=== PATIENT | male | born 1950 | race African-American/Black ===

== ENCOUNTER 2019-03-24 08:07 | Inpatient (IN) ==
--- NOTE | 2019-03-17 14:18 | Anesthesiology Consultation ---
Date of Service March 17, 2019 Assessment & Plan (1) Encounter for pre-operative examination: Chart Review Chart Review: Acceptable Risk for Surgery and Patient NOT seen in Pre Admission Testing given the chronic anemia with Hb <10, will order a T&S for morning of surgery. Consults Requested none History Surgery Operation Date: 03/24/19 08:20 Proposed Procedures p Laparoscopic Assisted Colon Resection - Darion Valdez MD Height/Weight Height: 5 ft 7 in Weight: 80.45 kg Allergies Allergy/AdvReac Type Severity Reaction Status Date / Time No Known Allergies Allergy Verified 03/17/19 10:42 Medications Home Medications Medication Instructions Recorded Confirmed Last Taken aspirin 81 mg tablet,delayed 81 mg PO DAILY 02/21/19 03/17/19 Unknown release atenolol 50 mg tablet 50 mg PO DAILY 02/21/19 03/17/19 Unknown atorvastatin 10 mg tablet 10 mg PO DAILY 02/21/19 03/17/19 Unknown enalapril 10 1 tab PO DAILY 02/21/19 03/17/19 Unknown mg-hydrochlorothiazide 25 mg tablet ferrous gluconate 324 mg (37.5 mg 324 mg PO DAILY tab 02/21/19 03/17/19 Unknown iron) tablet metformin 1,000 mg tablet 1,000 mg PO BID 02/21/19 03/17/19 Unknown ranitidine 150 mg capsule 150 mg PO BID 02/21/19 03/17/19 Unknown bisacodyl 10 mg PO DAILY 03/17/19 03/17/19 Unknown magnesium citrate 1 ml PO UD 03/17/19 03/17/19 Unknown metronidazole 500 mg PO TID 03/17/19 03/17/19 Unknown neomycin 500 mg PO Q8H 03/17/19 03/17/19 Unknown sodium phosphates [Fleet Enema] 197 ml NM DAILY 03/17/19 03/17/19 Unknown Past Medical History Medical History Anemia Cholelithiasis Cirrhosis Diabetes mellitus, type II GERD without esophagitis Glaucoma HCV (hepatitis C virus) Hypertension Malignant neoplasm of sigmoid colon Neck problem 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
[~2019-03-24 08:07] MED LIST: LR 15ML/HR IV SCH
[2019-03-24] MEDS ORDERED: NEOSTIGMINE METHYLSULFATE 5 MG/5 ML SYR ONE (08:55)
[2019-03-24] MEDS ORDERED: ONDANSETRON INJ 2 MG/ML 2 ML VIAL ONE (08:55)
[2019-03-24] MEDS ORDERED: ROCURONIUM BROMIDE 10 MG/ML 5 ML VIAL ONE ×2 (08:55→10:52)
[2019-03-24] MEDS ORDERED: PROPOFOL IV EMULSION 10 MG/ML 20 ML VIAL IV ONE (08:55)
[2019-03-24] MEDS ORDERED: MIDAZOLAM HCL 1 MG/ML 2ML VIAL ONE (08:55)
[2019-03-24] MEDS ORDERED: GLYCOPYRROLATE 0.2 MG/ML VIAL ONE (08:55)
[2019-03-24] MEDS ORDERED: DEXAMETHASONE SOD INJ 4 MG/ML VIAL ONE (08:55)
[2019-03-24] MEDS ORDERED: LIDOCAINE HCL 2% 2 ML VIAL/AMP(20MG/ML) INFIL ONE (08:55)
[2019-03-24] MEDS ORDERED: fentaNYL citrate 100 MCG/2 ML VIAL ONE ×2 (08:55→12:02)
[2019-03-24] MEDS ORDERED: HYDROmorphone INJ 1 MG/ML SYRINGE IV PRN (09:16)
[2019-03-24] MEDS ORDERED: ONDANSETRON INJ 2 MG/ML 2 ML VIAL IV PRN ×2 (09:16→13:54)
[2019-03-24] MEDS ORDERED: ATROPINE SULFATE 0.1 MG/ML 10ML SYR IV PRN (09:16)
[2019-03-24] MEDS ORDERED: ePHEDrine sulfate 50 MG/ML AMP IV PRN (09:16)
[2019-03-24] MEDS ORDERED: fentaNYL citrate 100 MCG/2 ML VIAL IV PRN (09:16)
--- NOTE | 2019-03-24 09:42 | History & Physical Report ---
Date of Service March 24, 2019 Assessment & Plan (1) Encounter for pre-operative examination: Plan is to proceed with laparoscopic assisted colon resection risk and complication of been explained to the patient lightheaded time and will proceed accordingly there is been no change whatsoever in his history or physical excepted bowel prep that he was placed on 2 prep for this procedure Present on Admission?: Yes History of Present Illness Chief Complaint: This 68-year-old prisoner saw month ago 30 days to be exact with a biopsy-proven sigmoid cancer stage by CT scan was placed on bowel prep and is came in today to have a laparoscopic assisted sigmoid colon resection since I saw month ago there is been no changes in overall health except that he had bowel prep last few days to prep for this procedure Primary Care Provider: GURDEEP Carter Allergies Allergy/AdvReac Type Severity Reaction Status Date / Time No Known Allergies Allergy Verified 03/24/19 08:26 Home Medications Home Medications Medication Instructions Recorded Confirmed Type aspirin 81 mg tablet,delayed 81 mg PO DAILY 02/21/19 03/17/19 History release atenolol 50 mg tablet 50 mg PO DAILY 02/21/19 03/17/19 History atorvastatin 10 mg tablet 10 mg PO DAILY 02/21/19 03/17/19 History enalapril 10 1 tab PO DAILY 02/21/19 03/17/19 History mg-hydrochlorothiazide 25 mg tablet ferrous gluconate 324 mg (37.5 mg 324 mg PO DAILY tab 02/21/19 03/17/19 History iron) tablet metformin 1,000 mg tablet 1,000 mg PO BID 02/21/19 03/17/19 History ranitidine 150 mg capsule 150 mg PO BID 02/21/19 03/17/19 History bisacodyl 10 mg PO DAILY 03/17/19 03/17/19 History magnesium citrate 1 ml PO UD 03/17/19 03/17/19 History metronidazole 500 mg PO TID 03/17/19 03/17/19 History neomycin 500 mg PO Q8H 03/17/19 03/17/19 History sodium phosphates [Fleet Enema] 197 ml MO DAILY 03/17/19 03/17/19 History Past Med/Surg History Medical History Anemia Cholelithiasis Cirrhosis Diabetes mellitus, type II GERD without esophagitis Glaucoma HCV (hepatitis C virus) Hypertension Malignant neoplasm of sigmoid colon Neck problem 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 Surgical History Surgical history unknown Family History Other Family history unknown Social History Current Living Situation Comment: [facility] Smoking Status: Unknown if ever smoked Review of Systems Review of Systems: All systems reviewed & are unremarkable except as noted in HPI & below Physical Exam Constitutional: WD/WN, vitals as above well developed and well nourished Eyes: PERRL, conjunctivae normal, anicteric sclerae ENMT: external ear and nose normal, oropharynx normal Neck: trachea midline, no thyromegaly Respiratory: normal respiratory effort, lungs clear to auscultation Cardiovascular: RRR, no murmur, no edema Gastrointestinal (Abdomen): normal bowel sounds, soft, nontender, no hepatosplenomegaly Musculoskeletal: no cyanosis or clubbing, extremities motor strength 5/5 Patient has a difficult time bending forward in fact he walks around and maneuvers himself as he is having abdominal and back brace which he does not and long-standing problem with back injuries Skin: no rashes, warm and dry Results & Data Vital Signs (Past 12 Hours) Vital Signs Temp Pulse Resp BP Pulse Ox 03/24/19 08:34 37.3 C 100 H 18 147/88 H 98 PG Care Time/CCT Total # of Minutes Spent Total Time Spent with Patient: Total time spent is greater than 50% in coordination of care (as documented) at patient's floor/unit and/or counseling patient:
[2019-03-24] MEDS ORDERED: BUPIVACAINE 0.5 % 5 MG/1 ML MPF 30ML VIAL ONE (09:54)
[2019-03-24] MEDS ORDERED: SUCCINYLCHOLINE CHLORIDE 20 MG/ML 10 ML VIAL ONE (10:12)
[2019-03-24] MEDS ORDERED: ESMOLOL HCL INJ 10 MG/ML 10ML VIAL IV ONE (10:40)
[2019-03-24] MEDS ORDERED: cefOXitin 2,000 MG in DEXTROSE 5% 50 ML IV STA ×2 (10:48→10:58)
[2019-03-24] MEDS ORDERED: SODIUM CHLORIDE 0.9% INJ 10 ML VIAL ONE (10:50)
[2019-03-24] MEDS ORDERED: HYDROmorphone INJ 2 MG/ML SYR/VIAL ONE (10:50)
[2019-03-24] MEDS ORDERED: SUGAMMADEX SODIUM 200 MG/2 ML VIAL IV ONE (12:08)
--- NOTE | 2019-03-24 12:20 | Post Operative Brief Note ---
PG Immediate Post Op with CF Date of Surgery March 24, 2019 Pre & Post Diagnosis Operation Date: 03/24/19 09:50 Pre-Op Diagnosis: Colon Cancer Post-Op Diagnosis: Colon Cancer, Incarcerated umbilical hernia I identified the patient and participated in the time-out.: Yes Procedure Operation Date: 03/24/19 09:50 Actual Procedures p Laparoscopic-Assisted SigmoidColon Resection, Left incarcerated umbilical hernia repair(Not Applicable) - Darion Valdez MD Surgeon Darion Valdez MD Sterile Preparation Technician b nikkie mac Estimated Blood Loss 100 Findings Consistent with Post-Op Diagnosis Specimens Specimen Description: Culture#1 cathed urine A. Sigmoid colon B. left incargerated umbilical hernia contents Drains Yair Drain (19Fr), Rae Catheter and Belinda Drain (1/")
--- NOTE | 2019-03-24 12:43 | Operative Report ---
PG Post Operative Report Pre & Post Diagnosis Operation Date: 03/24/19 09:50 Pre-Op Diagnosis: Colon Cancer Post-Op Diagnosis: Colon Cancer, Incarcerated umbilical hernia I identified the patient and participated in the time-out.: Yes Procedure Operation Date: 03/24/19 09:50 Actual Procedures p Laparoscopic-Assisted SigmoidColon Resection, Left incarcerated umbilical hernia repair(Not Applicable) - Darion Valdez MD The patient was brought to operating room theater general endotracheal anesthesia Rae catheter inserted the abdomen was shaved and prepped Betadine scrub solution properly draped systemic antibiotics given a timeout was had patient was identified this point we made a small incision supraumbilically sufficient enough for a Veress needle followed by CO2 followed by 5 mm trocar point of entry inspected no injury identified we looked at the liver which was grossly cirrhotic there was no obvious the implants there was no implants that was appreciated on the omentum patient did have a significant dilated sigmoid colon and descending colon possibly from bowel prep since he had no real obstructive symptoms for the lesion in the sigmoid area this point we used 5 mm trocar right lower quadrant and one on the left upper quadrant we divided and freed up the lateral attachments of the sigmoid colon usp up to the hepatic flexure splenic flexure. At this point after feeling that we we had enough mobilization we then converted to an open procedure by making a slower midline incision to the subcutaneous tissue dividing between the rectus intra-abdominal he once we entered the dilated colon actually came out of the incision we placed the Bookwalter retraction and then we were able to see since we had enough mobi lity we divided the descending colon just proximal to the peritoneal but proximal to the pelvic inlet using a RALPH 60 we divided then took the mesentery down to the inferior mesenteric artery almost at the takeoff. We divided that area ligated with 2-0 silk then we took the mesentery down which the tumor itself was easily palpated and it was almost almost mid sigmoid we were well below into the distal sigmoid area probably about 6 cm or more beyond the lesion we put a right ankle intestinal clamp in the area and then divided it and we try to remove the specimen the area was then checked hemostasis appear satisfactory we were able to palpate the lesion we took it out the way well beyond it we could see the attached to the area. The staple line proximally in the sigmoid colon was oversewn with an side and anastomoses layer 3-0 chromic in the sigmoid area approximately 4 5 cm proximal to the rectum. Once is been completed we then sure checked for hemostasis at the anastomosis was patent we then was saw that the umbilical opening having some incarcerated omentum in the proximal aspect therefore we enlarged the incision sufficient enough to reduce the incarcerated omentum into the umbilical area we resected ligated with 2-0 silk suture we then closed the abdominal incision by first checking the small bowel which we did actually down to into the right lower quadrant in the pelvic area there is seem to be an adhesive band even though it was well away the appendix which pretty much obliterated we freed this up it was small mesenteric dehiscence that we closed with interrupted 3-0 silk suture probably some serosal separation also the terminal ileum but no enteric contents were no evidence of any wall. #1 PDS interrupted sutures were used to close the abdominal incision after using 3-0 chromic for #1 chromic to close the peritoneum in a continuous fashion placed 1/4 inch [place] in the subcu suturing approximately distally and with 3-0 silk suture we also placed a 19 Yair drain through stab wound in the left upper quadrant done in the pelvic area attention to skin edge with 2-0 silk suture. Dressing was applied. Procedure was tolerated well by the patient estimated blood loss 100 cc padmaendKosta mac was present throughout the procedure helped with wound closure exposure and camera work Surgeon Darion Valdez MD Data Operations Leader roni mac Estimated Blood Loss 100 Findings Consistent with Post-Op Diagnosis Specimens sigmoid colon inc umbilical hernia contents Description of Procedure merda I attest to the content of the Intraoperative Record and any orders documented therein. Any exceptions are noted below.
[2019-03-24] MEDS ORDERED: GLUCOSE 40% GEL 15 GM TUBE PO PRN (13:54)
[2019-03-24] MEDS ORDERED: DEXTROSE 50% 50 ML SYRINGE IV PRN (13:54)
[2019-03-24] MEDS ORDERED: GLUCAGON FOR INJ 1 MG VIAL SQ PRN (13:54)
[2019-03-24] MEDS ORDERED: GLUCOSE 10 TABS/TUBE PO PRN (13:54)
[2019-03-24] MEDS ORDERED: CARBOHYDRATES FOR HYPOGLYCEMIA PO PRN (13:54)
[2019-03-24] MEDS ORDERED: NALOXONE HCL 0.4 MG/1 ML VIAL/CARP IV PRN (14:01)
[2019-03-24] MEDS: SODIUM CHLORIDE 0.9% 1000ML 1,000 ML IV SCH (14:10)
[2019-03-24] MEDS ORDERED: INFLUENZA VACCINE HIGH DOSE 65+ 0.5 ML SYR IM ONE (15:45)
[2019-03-24] MEDS ORDERED: INFLUENZA ADMINISTRATION CHARGE ONE (15:45)
[2019-03-24] MEDS: cefOXitin 2,000 MG in DEXTROSE 5% 50 ML IV SCH ×2 (15:56→21:48)
[2019-03-24] MEDS ORDERED: INSULIN ASPART 100 UNITS/ML 3 ML PEN SC SCH (16:30)
[2019-03-24] MEDS: MORPHINE SULFATE PCA 30 MG/30 ML IV PRN (17:55)
[2019-03-24] MEDS: LACTATED RINGER'S 1,000 ML IV SCH (18:16)
[2019-03-24] MEDS ORDERED: Nursing to Pharmacy Communication ONE (18:23)
--- NOTE | 2019-03-24 20:15 | Anesthesiology Progress Note ---
Date of Service March 24, 2019 Anesthesia Post Procedure Vital Signs Vital Signs: Temp Pulse Pulse Resp BP Pulse Ox 03/24/19 19:00 37 C 89 16 130/78 99 03/24/19 16:48 36.7 C 88 17 129/77 98 03/24/19 15:46 36.7 C 87 17 124/76 98 03/24/19 13:30 74 17 146/77 H 98 03/24/19 13:20 36.3 C L 77 12 136/75 99 03/24/19 13:10 77 13 133/72 99 03/24/19 13:00 36.8 C 76 75 16 133/76 2 L 03/24/19 12:50 77 18 147/80 H 98 03/24/19 12:40 86 18 148/82 H 93 03/24/19 12:34 36.4 C L 75 18 163/81 H 97 03/24/19 08:34 37.3 C 100 H 18 147/88 H 98 Pain Intensity Bilateral Knee: Pain Intensity: 0 Bilateral Abdomen: Pain Intensity: 4 Transfer of Care Handoff Completed per policy Notes Mental Status: alert / awake / arousable and participated in evaluation Patient Amnestic to Procedure: Yes Nausea / Vomiting: adequately controlled Pain: adequately controlled Airway Patency, RR, SpO2: stable & adequate BP & HR: stable & adequate Hydration State: stable & adequate Anesthetic Complications: no major complications apparent and Pt Satisfied with anesthetic care
[2019-03-24] MEDS: HEPARIN SOD 5,000 UNIT/0.5 ML VIAL SQ SCH (21:13)
[2019-03-24] MEDS: INSULIN ASPART 100 UNITS/ML 3 ML PEN SC SCH (23:43)
[2019-03-25] MEDS ORDERED: INSULIN ASPART 100 UNITS/ML 3 ML PEN SC SCH
[2019-03-25] MEDS: LACTATED RINGER'S 1,000 ML IV SCH ×5 (02:11→23:56)
[2019-03-25] MEDS: cefOXitin 2,000 MG in DEXTROSE 5% 50 ML IV SCH ×2 (04:50→09:34)
[2019-03-25 05:48] LABS: Hematocrit (blood only) 30.7 % (42-52); Hemoglobin 8.8 g/dL (14.0-18.0); Mean Corpuscular Hemoglobin 19.2 pg (25-34); Mean Corpuscular Hgb Conc 28.7 g/dL (32-36); Mean Corpuscular Volume 66.9 fL (80-100); Mean Platelet Volume 9.8 fL (7.4-10.4); Platelet Count 255 K/uL (130-400); RDW Coefficient of Variation 17.3 % (11.5-14.5); RDW Standard Deviation 42.3 fL (36.4-46.3); Red Blood Count 4.59 M/uL (4.7-6.1); White Blood Count 9.28 K/uL (4.8-10.8)
[2019-03-25 06:05] LABS: BUN Creatinine Ratio 16.7 (10-20); Calcium 8.2 mg/dl (8.5-10.1); Creatinine Clr Calc Pharmacy 104.3 ml/min; Est GFR (African American) 111.1; Est GFR (Non-African American) 95.9; Potassium 4.2 mmol/L (3.5-5.1)
--- NOTE | 2019-03-25 08:05 | Anesthesiology Progress Note ---
Date of Service March 25, 2019 Anesthesia Post Procedure Vital Signs Vital Signs: Temp Pulse Pulse Resp BP Pulse Ox 03/25/19 07:49 36.8 C 90 16 158/84 H 99 03/25/19 04:05 36.8 C 81 16 159/83 H 100 03/24/19 23:09 37.0 C 101 H 16 150/77 H 99 03/24/19 21:53 37 C 97 H 14 138/81 99 03/24/19 21:06 37.5 C 90 18 129/82 99 03/24/19 20:16 36.5 C 95 H 18 139/83 99 03/24/19 19:00 37 C 89 16 130/78 99 03/24/19 16:48 36.7 C 88 17 129/77 98 03/24/19 15:46 36.7 C 87 17 124/76 98 03/24/19 13:30 74 17 146/77 H 98 03/24/19 13:20 36.3 C L 77 12 136/75 99 03/24/19 13:10 77 13 133/72 99 03/24/19 13:00 36.8 C 76 75 16 133/76 2 L 03/24/19 12:50 77 18 147/80 H 98 03/24/19 12:40 86 18 148/82 H 93 03/24/19 12:34 36.4 C L 75 18 163/81 H 97 03/24/19 08:34 37.3 C 100 H 18 147/88 H 98 Pain Intensity Bilateral Knee: Pain Intensity: 0 Bilateral Abdomen: Pain Intensity: 4 Notes Mental Status: alert / awake / arousable and participated in evaluation Patient Amnestic to Procedure: Yes Nausea / Vomiting: adequately controlled Pain: adequately controlled Airway Patency, RR, SpO2: stable & adequate BP & HR: stable & adequate Hydration State: stable & adequate Anesthetic Complications: no major complications apparent and Pt Satisfied with anesthetic care
[2019-03-25] MEDS: ATORVASTATIN 10 MG TAB PO SCH (08:10)
[2019-03-25] MEDS: ASPIRIN 81 MG ECTAB PO SCH (08:10)
[2019-03-25] MEDS: ATENOLOL 50 MG TABLET PO SCH (08:10)
[2019-03-25] MEDS: HEPARIN SOD 5,000 UNIT/0.5 ML VIAL SQ SCH ×3 (08:16→21:34)
[2019-03-25] MEDS: INSULIN ASPART 100 UNITS/ML 3 ML PEN SC SCH ×3 (08:16→18:05)
--- NOTE | 2019-03-25 09:06 | Surgery Progress Note ---
Date of Service March 25, 2019 Assessment & Plan (1) Encounter for pre-operative examination: POD 1 lap assisted sigmoid resection for CA start clears subQ heparin monitor H&H, minimal intraop loss and delaney drainage decrease IVF Subjective some pain, no nausea Physical Exam Gastrointestinal (Abdomen): Inspection/Auscultation: + abdominal surgical incision (minimal elizabeth drainage) and + abdominal surgical drain present (10 cc overnight); abdomen not distended Percussion/Palpation: abdomen soft Results & Data Vital Signs (Past 12 Hours) Vital Signs Temp Pulse Resp BP Pulse Ox 03/25/19 07:49 36.8 C 90 16 158/84 H 99 03/25/19 04:05 36.8 C 81 16 159/83 H 100 03/24/19 23:09 37.0 C 101 H 16 150/77 H 99 03/24/19 21:53 37 C 97 H 14 138/81 99 PG Care Time/CCT Total # of Minutes Spent Total Time Spent with Patient: Total time spent is greater than 50% in coordination of care (as documented) at patient's floor/unit and/or counseling patient:
[2019-03-25] MEDS: SODIUM CHLORIDE 0.9% 1000ML 1,000 ML IV SCH (13:06)
[2019-03-26] MEDS: INSULIN ASPART 100 UNITS/ML 3 ML PEN SC SCH ×5 (00:05→23:54)
[2019-03-26] MEDS: HEPARIN SOD 5,000 UNIT/0.5 ML VIAL SQ SCH ×3 (05:12→21:11)
[2019-03-26] MEDS: MORPHINE SULFATE PCA 30 MG/30 ML IV PRN (05:52)
[2019-03-26 06:03] LABS: BUN Creatinine Ratio 13.8 (10-20); Calcium 8.2 mg/dl (8.5-10.1); Creatinine Clr Calc Pharmacy 110.5 ml/min; Est GFR (African American) 113.7; Est GFR (Non-African American) 98.1; Potassium 4.7 mmol/L (3.5-5.1)
[2019-03-26 06:24] LABS: Basophils # (auto) 0.03 K/uL (0-0.2); Basophils % (auto) 0.5 %; Eosinophils # (auto) 0.15 K/uL (0-0.5); Eosinophils % (auto) 2.4 %; Hematocrit (blood only) 30.6 % (42-52); Hemoglobin 8.5 g/dL (14.0-18.0); Hypochromasia Present; Immature Granulocytes # (auto) 0.01 K/uL (0.00-0.02); Immature Granulocytes % (auto) 0.2 %; Lymphocytes # (auto) 1.42 K/uL (1.2-3.4); Lymphocytes % (auto) 22.3 %; Mean Corpuscular Hemoglobin 19.2 pg (25-34); Mean Corpuscular Hgb Conc 27.8 g/dL (32-36); Mean Corpuscular Volume 69.2 fL (80-100); Mean Platelet Volume 10.5 fL (7.4-10.4); Microcytosis Present; Monocytes # (auto) 0.67 K/uL (0.11-0.59); Monocytes % (auto) 10.5 %; Neutrophils # (auto) 4.08 K/uL (1.4-6.5); Neutrophils % (auto) 64.1 %; Platelet Count 218 K/uL (130-400); RDW Coefficient of Variation 17.4 % (11.5-14.5); RDW Standard Deviation 44.4 fL (36.4-46.3); Red Blood Count 4.42 M/uL (4.7-6.1); White Blood Count 6.36 K/uL (4.8-10.8)
[2019-03-26] MEDS: LACTATED RINGER'S 1,000 ML IV SCH ×3 (07:40→23:45)
[2019-03-26] MEDS: ATENOLOL 50 MG TABLET PO SCH (08:11)
[2019-03-26] MEDS: ASPIRIN 81 MG ECTAB PO SCH (08:11)
[2019-03-26] MEDS: ATORVASTATIN 10 MG TAB PO SCH (08:11)
--- NOTE | 2019-03-26 10:02 | Surgery Progress Note ---
Date of Service March 26, 2019 Assessment & Plan (1) Encounter for pre-operative examination: Postoperative day #2 status post laparoscopic assisted sigmoid colon resection Peristalsis has not yet returned Would continue n.p.o. Does not need an NG tube at this time H&H is stable Encouraged out of bed Subjective Postoperative day #1, status post laparoscopic-assisted sigmoid colon resection Distention unchanged Has not passed gas or had a bowel movement Denies nausea No vomiting Mello-Rubio drain with 120 cc out yesterday and 80 cc out last shift, serosanguineous Physical Exam Gastrointestinal (Abdomen): Inspection/Auscultation: + abdomen distended and + abdominal surgical incision (Clean, dry and intact) Percussion/Palpation: + abdomen tender (Incisional) and abdomen soft Few bowel sounds Results & Data Vital Signs (Past 12 Hours) Vital Signs Temp Pulse Resp BP Pulse Ox 03/26/19 07:09 36.9 C 85 18 127/84 86 L 03/26/19 03:50 36.9 C 64 16 135/72 99 03/25/19 22:58 37.0 C 80 16 106/66 97 Laboratory Results 03/26/19 03/26/19 03/26/19 Range/Units 06:00 05:02 05:02 WBC 6.36 (4.8-10.8) K/uL RBC 4.42 L (4.7-6.1) M/uL Hgb 8.5 L (14.0-18.0) g/dL Hct 30.6 L (42-52) % MCV 69.2 L (80-100) fL MCH 19.2 L (25-34) pg MCHC 27.8 L (32-36) g/dL RDW Std Deviation 44.4 (36.4-46.3) fL RDW Coeff of Kvng 17.4 H (11.5-14.5) % Plt Count 218 (130-400) K/uL MPV 10.5 H (7.4-10.4) fL Immature Gran % (Auto) 0.2 % Neut % (Auto) 64.1 % Lymph % (Auto) 22.3 % Ponce % (Auto) 10.5 % Eos % (Auto) 2.4 % Baso % (Auto) 0.5 % Immature Gran # (Auto) 0.01 (0.00-0.02) K/uL Neut # (Auto) 4.08 (1.4-6.5) K/uL Lymph # (Auto) 1.42 (1.2-3.4) K/uL Ponce # (Auto) 0.67 H (0.11-0.59) K/uL Eos # (Auto) 0.15 (0-0.5) K/uL Baso # (Auto) 0.03 (0-0.2) K/uL Hypochromasia Present Microcytosis Present Sodium 138 (136-145) mmol/L Potassium 4.7 (3.5-5.1) mmol/L Chloride 104 (98-107) mmol/L Carbon Dioxide 30 (21-32) mmol/L Anion Gap 4.0 (3-11) BUN 9 (7-18) mg/dl Creatinine 0.68 (0.6-1.4) mg/dl Est Cr Clr Drug Dosing 110.5 ml/min Est GFR ( Amer) 113.7 Est GFR (Non-Af Amer) 98.1 BUN/Creatinine Ratio 13.8 (10-20) Glucose 94 (70-99) mg/dl POC Glucose 89 (70-99) Calcium 8.2 L (8.5-10.1) mg/dl 03/25/19 03/25/19 03/25/19 Range/Units 23:55 18:03 12:07 WBC (4.8-10.8) K/uL RBC (4.7-6.1) M/uL Hgb (14.0-18.0) g/dL Hct (42-52) % MCV (80-100) fL MCH (25-34) pg MCHC (32-36) g/dL RDW Std Deviation (36.4-46.3) fL RDW Coeff of Kvng (11.5-14.5) % Plt Count (130-400) K/uL MPV (7.4-10.4) fL Immature Gran % (Auto) % Neut % (Auto) % Lymph % (Auto) % Ponce % (Auto) % Eos % (Auto) % Baso % (Auto) % Immature Gran # (Auto) (0.00-0.02) K/uL Neut # (Auto) (1.4-6.5) K/uL Lymph # (Auto) (1.2-3.4) K/uL Ponce # (Auto) (0.11-0.59) K/uL Eos # (Auto) (0-0.5) K/uL Baso # (Auto) (0-0.2) K/uL Hypochromasia Microcytosis Sodium (136-145) mmol/L Potassium (3.5-5.1) mmol/L Chloride (98-107) mmol/L Carbon Dioxide (21-32) mmol/L Anion Gap (3-11) BUN (7-18) mg/dl Creatinine (0.6-1.4) mg/dl Est Cr Clr Drug Dosing ml/min Est GFR ( Amer) Est GFR (Non-Af Amer) BUN/Creatinine Ratio (10-20) Glucose (70-99) mg/dl POC Glucose 109 H 132 H 129 H (70-99) Calcium (8.5-10.1) mg/dl
[2019-03-26] MEDS: SODIUM CHLORIDE 0.9% 1000ML 1,000 ML IV SCH (13:23)
[2019-03-27] MEDS: MORPHINE SULFATE PCA 30 MG/30 ML IV PRN (05:57)
[2019-03-27] MEDS: HEPARIN SOD 5,000 UNIT/0.5 ML VIAL SQ SCH ×3 (05:58→20:44)
[2019-03-27] MEDS: INSULIN ASPART 100 UNITS/ML 3 ML PEN SC SCH ×4 (06:03→20:42)
[2019-03-27 06:09] LABS: BUN Creatinine Ratio 15.9 (10-20); Calcium 8.3 mg/dl (8.5-10.1); Creatinine Clr Calc Pharmacy 125.2 ml/min; Est GFR (African American) 119.7; Est GFR (Non-African American) 103.3; Potassium 4.2 mmol/L (3.5-5.1)
[2019-03-27] MEDS: LACTATED RINGER'S 1,000 ML IV SCH ×3 (06:09→21:40)
[2019-03-27 06:15] LABS: Hematocrit (blood only) 32.3 % (42-52); Hemoglobin 8.7 g/dL (14.0-18.0); Mean Corpuscular Hemoglobin 18.8 pg (25-34); Mean Corpuscular Hgb Conc 26.9 g/dL (32-36); Mean Corpuscular Volume 69.8 fL (80-100); Mean Platelet Volume 10.1 fL (7.4-10.4); Platelet Count 237 K/uL (130-400); RDW Coefficient of Variation 17.5 % (11.5-14.5); RDW Standard Deviation 44.4 fL (36.4-46.3); Red Blood Count 4.63 M/uL (4.7-6.1); White Blood Count 6.72 K/uL (4.8-10.8)
[2019-03-27 06:16] LABS: Basophils # (auto) 0.01 K/uL (0-0.2); Basophils % (auto) 0.1 %; Eosinophils # (auto) 0.03 K/uL (0-0.5); Eosinophils % (auto) 0.4 %; Hypochromasia Present; Immature Granulocytes # (auto) 0.02 K/uL (0.00-0.02); Immature Granulocytes % (auto) 0.3 %; Lymphocytes # (auto) 1.21 K/uL (1.2-3.4); Monocytes # (auto) 0.55 K/uL (0.11-0.59); Monocytes % (auto) 8.2 %; Ovalocytes 1+
[2019-03-27] MEDS: ATENOLOL 50 MG TABLET PO SCH (07:58)
[2019-03-27] MEDS: ATORVASTATIN 10 MG TAB PO SCH (07:58)
[2019-03-27] MEDS: ASPIRIN 81 MG ECTAB PO SCH (07:58)
--- NOTE | 2019-03-27 10:30 | Surgery Progress Note ---
Date of Service March 27, 2019 Assessment & Plan (1) Encounter for pre-operative examination: Postoperative day #3 status post laparoscopic assisted sigmoid colon resection Peristalsis has returned We will start clear liquids Recommended ambulation H&H stable Subjective Postoperative day #3 status post laparoscopic assisted sigmoid colon resection Feels better today Had bowel movement Denies nausea and vomiting Starla had 220 cc out yesterday and 290 cc out last shift all of which was serosanguineous Physical Exam Gastrointestinal (Abdomen): Inspection/Auscultation: + abdominal surgical incision (Clean, dry and intact); abdomen not distended Percussion/Palpation: + abdomen tender (Incisional only) and abdomen soft Bowel sounds present and of normal pitch Results & Data Vital Signs (Past 12 Hours) Vital Signs Temp Pulse Resp BP Pulse Ox 03/27/19 03:28 36.7 C 68 16 115/66 100 Laboratory Results 03/27/19 03/27/19 03/27/19 Range/Units 05:59 05:17 05:17 WBC 6.72 (4.8-10.8) K/uL RBC 4.63 L (4.7-6.1) M/uL Hgb 8.7 L (14.0-18.0) g/dL Hct 32.3 L (42-52) % MCV 69.8 L (80-100) fL MCH 18.8 L (25-34) pg MCHC 26.9 L (32-36) g/dL RDW Std Deviation 44.4 (36.4-46.3) fL RDW Coeff of Kvng 17.5 H (11.5-14.5) % Plt Count 237 (130-400) K/uL MPV 10.1 (7.4-10.4) fL Immature Gran % (Auto) 0.3 % Neut % (Auto) 73.0 % Lymph % (Auto) 18.0 % Hudson % (Auto) 8.2 % Eos % (Auto) 0.4 % Baso % (Auto) 0.1 % Immature Gran # (Auto) 0.02 (0.00-0.02) K/uL Neut # (Auto) 4.90 (1.4-6.5) K/uL Lymph # (Auto) 1.21 (1.2-3.4) K/uL Hudson # (Auto) 0.55 (0.11-0.59) K/uL Eos # (Auto) 0.03 (0-0.5) K/uL Baso # (Auto) 0.01 (0-0.2) K/uL Hypochromasia Present Ovalocytes 1+ Sodium 138 (136-145) mmol/L Potassium 4.2 (3.5-5.1) mmol/L Chloride 102 (98-107) mmol/L Carbon Dioxide 27 (21-32) mmol/L Anion Gap 9.0 (3-11) BUN 9 (7-18) mg/dl Creatinine 0.60 (0.6-1.4) mg/dl Est Cr Clr Drug Dosing 125.2 ml/min Est GFR ( Amer) 119.7 Est GFR (Non-Af Amer) 103.3 BUN/Creatinine Ratio 15.9 (10-20) Glucose 111 H (70-99) mg/dl POC Glucose 113 H (70-99) Calcium 8.3 L (8.5-10.1) mg/dl 03/26/19 03/26/19 03/26/19 Range/Units 23:50 17:48 11:58 WBC (4.8-10.8) K/uL RBC (4.7-6.1) M/uL Hgb (14.0-18.0) g/dL Hct (42-52) % MCV (80-100) fL MCH (25-34) pg MCHC (32-36) g/dL RDW Std Deviation (36.4-46.3) fL RDW Coeff of Kvng (11.5-14.5) % Plt Count (130-400) K/uL MPV (7.4-10.4) fL Immature Gran % (Auto) % Neut % (Auto) % Lymph % (Auto) % Hudson % (Auto) % Eos % (Auto) % Baso % (Auto) % Immature Gran # (Auto) (0.00-0.02) K/uL Neut # (Auto) (1.4-6.5) K/uL Lymph # (Auto) (1.2-3.4) K/uL Hudson # (Auto) (0.11-0.59) K/uL Eos # (Auto) (0-0.5) K/uL Baso # (Auto) (0-0.2) K/uL Hypochromasia Ovalocytes Sodium (136-145) mmol/L Potassium (3.5-5.1) mmol/L Chloride (98-107) mmol/L Carbon Dioxide (21-32) mmol/L Anion Gap (3-11) BUN (7-18) mg/dl Creatinine (0.6-1.4) mg/dl Est Cr Clr Drug Dosing ml/min Est GFR ( Amer) Est GFR (Non-Af Amer) BUN/Creatinine Ratio (10-20) Glucose (70-99) mg/dl POC Glucose 115 H 95 122 H (70-99) Calcium (8.5-10.1) mg/dl
[2019-03-27] MEDS: SODIUM CHLORIDE 0.9% 1000ML 1,000 ML IV SCH (13:13)
[2019-03-27] MEDS ORDERED: Nursing to Pharmacy Communication ONE (16:21)
[2019-03-28] MEDS: LACTATED RINGER'S 1,000 ML IV SCH (05:04)
[2019-03-28] MEDS: HEPARIN SOD 5,000 UNIT/0.5 ML VIAL SQ SCH ×3 (05:04→21:18)
[2019-03-28 07:24] LABS: Hematocrit (blood only) 29.5 % (42-52); Hemoglobin 8.2 g/dL (14.0-18.0); Mean Corpuscular Hemoglobin 19.1 pg (25-34); Mean Corpuscular Hgb Conc 27.8 g/dL (32-36); Mean Corpuscular Volume 68.8 fL (80-100); Mean Platelet Volume 9.5 fL (7.4-10.4); Platelet Count 195 K/uL (130-400); RDW Coefficient of Variation 17.4 % (11.5-14.5); RDW Standard Deviation 43.8 fL (36.4-46.3); Red Blood Count 4.29 M/uL (4.7-6.1); White Blood Count 4.19 K/uL (4.8-10.8)
[2019-03-28 07:39] LABS: Eosinophils # (auto) 0.17 K/uL (0-0.5); Eosinophils % (auto) 4.1 %; Hypochromasia Present; Immature Granulocytes # (auto) 0.01 K/uL (0.00-0.02); Immature Granulocytes % (auto) 0.2 %; Lymphocytes # (auto) 0.91 K/uL (1.2-3.4); Lymphocytes % (auto) 21.7 %; Microcytosis Present; Monocytes # (auto) 0.46 K/uL (0.11-0.59); Neutrophils # (auto) 2.64 K/uL (1.4-6.5)
--- NOTE | 2019-03-28 07:48 | Surgery Progress Note ---
Date of Service March 28, 2019 Assessment & Plan (1) Colon cancer: This time will DC the IV analgesics start p.o. analgesics increase his diet cut his IV fluids and pending how he does probably will be able to be discharged tomorrow drop in hemoglobin was noted this is dilutional effect and today will most likely diuresed more the fourth day postop The path report is still pending Present on Admission?: Yes Subjective POD 4 The patient denies any complaints he says he is having no abdominal discomfort he has moved his bowels he is passing his urine he just had some ice cream and some liquids yesterday Postoperative day #3 status post laparoscopic assisted sigmoid colon resection Feels better today Had bowel movement Denies nausea and vomiting Starla had 220 cc out yesterday and 290 cc out last shift all of which was serosanguineous Physical Exam Physical Exam: He is comfortable in bed no complaints O2 nasal cannula The abdomen is softer than last seen on Thursday slightly distended nontender The incision is healed well no cellulitis Underwood drain subcu was removed Yair drainage serous fluid decreasing was removed Results & Data Vital Signs (Past 12 Hours) Vital Signs Temp Pulse Resp BP Pulse Ox 03/28/19 07:16 37.2 C 73 16 147/79 H 97 03/28/19 03:48 36.9 C 84 18 136/79 96 03/27/19 23:12 37.2 C 71 16 149/73 H 94 03/27/19 22:17 37.1 C 70 12 135/70 100 PG Care Time/CCT Total # of Minutes Spent Total Time Spent with Patient: Total time spent is greater than 50% in coordination of care (as documented) at patient's floor/unit and/or counseling patient:
[2019-03-28 08:00] LABS: BUN Creatinine Ratio 10.8 (10-20); Calcium 8.1 mg/dl (8.5-10.1); Creatinine Clr Calc Pharmacy 134.1 ml/min; Est GFR (African American) 123.2; Est GFR (Non-African American) 106.3; Potassium 3.3 mmol/L (3.5-5.1)
[2019-03-28] MEDS: ASPIRIN 81 MG ECTAB PO SCH (08:51)
[2019-03-28] MEDS: ATORVASTATIN 10 MG TAB PO SCH (08:51)
[2019-03-28] MEDS: ATENOLOL 50 MG TABLET PO SCH (08:51)
[2019-03-28] MEDS: INSULIN ASPART 100 UNITS/ML 3 ML PEN SC SCH ×4 (09:04→21:16)
[2019-03-28] MEDS ORDERED: FUROSEMIDE 10 MG in SYRINGE 0 ML IV ONE (10:02)
[2019-03-28] MEDS: POTASSIUM CHLORIDE 20 MEQ TABCR PO SCH ×3 (10:30→20:01)
[2019-03-28] MEDS: OXYCODONE/ACETAMINOPHEN 5mg/325mg TAB PO PRN (20:00)
[2019-03-29] MEDS: OXYCODONE/ACETAMINOPHEN 5mg/325mg TAB PO PRN (00:09)
[2019-03-29] MEDS: HEPARIN SOD 5,000 UNIT/0.5 ML VIAL SQ SCH (06:05)
[2019-03-29 07:38] LABS: Hematocrit (blood only) 31.8 % (42-52); Hemoglobin 8.7 g/dL (14.0-18.0); Mean Corpuscular Hemoglobin 18.7 pg (25-34); Mean Corpuscular Hgb Conc 27.4 g/dL (32-36); Mean Corpuscular Volume 68.2 fL (80-100); Mean Platelet Volume 9.7 fL (7.4-10.4); Platelet Count 210 K/uL (130-400); RDW Coefficient of Variation 17.3 % (11.5-14.5); RDW Standard Deviation 43.1 fL (36.4-46.3); Red Blood Count 4.66 M/uL (4.7-6.1); White Blood Count 3.82 K/uL (4.8-10.8)
[2019-03-29 07:42] LABS: Basophils # (auto) 0.01 K/uL (0-0.2); Basophils % (auto) 0.3 %; Eosinophils # (auto) 0.27 K/uL (0-0.5); Eosinophils % (auto) 7.1 %; Hypochromasia Present; Immature Granulocytes # (auto) 0.01 K/uL (0.00-0.02); Immature Granulocytes % (auto) 0.3 %; Lymphocytes # (auto) 0.98 K/uL (1.2-3.4); Lymphocytes % (auto) 25.7 %; Microcytosis Present; Monocytes # (auto) 0.43 K/uL (0.11-0.59); Monocytes % (auto) 11.3 %; Neutrophils # (auto) 2.12 K/uL (1.4-6.5); Neutrophils % (auto) 55.3 %
[2019-03-29 08:00] LABS: BUN Creatinine Ratio 11.9 (10-20); Calcium 8.1 mg/dl (8.5-10.1); Creatinine Clr Calc Pharmacy 112.1 ml/min; Est GFR (African American) 114.4; Est GFR (Non-African American) 98.7; Potassium 3.4 mmol/L (3.5-5.1)
--- NOTE | 2019-03-29 08:47 | Surgery Progress Note ---
Date of Service March 29, 2019 Assessment & Plan (1) Colon cancer: 03/29/19 Patient overall doing well. Tolerating a diet and having bowel function. Pain is managed and incisions c/d/i with fili Hbg stable today at 8.7 PO potassium ordered for electrolyte repletion Will plan for discharge to facility today Will ask patient to follow up with Dr. Valdez within 1 week Subjective Patient offers no complaints. Is having bowel function. Tolerating a low fiber diet. Physical Exam Physical Exam: awake/alert/sitting up at side of bed Gastrointestinal (Abdomen): Inspection/Auscultation: + abdominal surgical incision (c/d/i with midline fili) Percussion/Palpation: + abdomen tender (mildly karen-incisionally) and abdomen soft Results & Data Vital Signs (Past 12 Hours) Vital Signs Temp Pulse Resp BP Pulse Ox 03/29/19 07:24 36.7 C 87 18 148/84 H 92 03/28/19 23:01 36.9 C 78 18 126/74 90 PG Care Time/CCT Total # of Minutes Spent Total Time Spent with Patient: Total time spent is greater than 50% in coordination of care (as documented) at patient's floor/unit and/or counseling patient:
[2019-03-29] MEDS: INSULIN ASPART 100 UNITS/ML 3 ML PEN SC SCH ×2 (09:01→12:41)
[2019-03-29] MEDS: ASPIRIN 81 MG ECTAB PO SCH (09:06)
[2019-03-29] MEDS: ATORVASTATIN 10 MG TAB PO SCH (09:06)
[2019-03-29] MEDS: POTASSIUM CHLORIDE 20 MEQ TABCR PO SCH (09:06)
[2019-03-29] MEDS: ATENOLOL 50 MG TABLET PO SCH (09:06)
--- NOTE | 2019-03-29 11:47 | Discharge Summary ---
Date of Service March 29, 2019 Principal Diagnosis 1. Colon cancer 2. Hypokalemia 3. Chronic anemia Discharge Exam Constitutional WD/WN, vitals as above Gastrointestinal (Abdomen) Inspection/Auscultation: + abdominal surgical incision (clean, dry, no erythema); abdomen not distended Percussion/Palpation: abdomen soft Discharge Data Allergies Allergy/AdvReac Type Severity Reaction Status Date / Time No Known Allergies Allergy Verified 03/24/19 08:26 Procedures Performed Operation Date: 03/24/19 09:50 Actual Procedures p Laparoscopic-Assisted SigmoidColon Resection, Left incarcerated umbilical hernia repair(Not Applicable) - Darion Valdez MD Hospital Course (1) Colon cancer: 68 y/o male underwent laparoscopic assisted sigmoid colon resection for cancer. Transferred to regular surgical floor and did well postoperatively. Was able to tolerate slowly advancing diet. SubQ heparin was used for DVT prophylaxis. Has a chronic anemia, hemoglobin remained stable at 8.7. Potassium was supplemented orally and at discharge was 3.4. Belinda and delaney drains were removed POD 4. He was tolerating diet and oral analgesics on POD 5 and was stable for discharge. Skin fili will be removed in the office in approximately 1 week. Total Time Total Time Spent Total Time Spent (In Minutes): 15 Discharge Plan Discharge Items [facility] Disposition[facility] Reason For Visit: Colon Cancer Discharge Diagnosis: sigmoid colon resection Activity: As commented below Lifting: No more than 10 pounds Bathing Comment: ok to shower Non-emergency contact: Surgeon Call non-emergency contact if: you have any medication questions, your temperature is above 101.5, your wound has increased redness and your wound has increased drainage Follow-up/Referrals: Darion Valdez MD [Surgeon] - (Should be seen in the office in 1 week) Raul MACKENZIE [Primary Care Provider] - Diet: Regular Addtl Attending Provider Instructions: Pending Studies at Discharge: No Stand-Alone Forms: My [facility] Skilled Items Patient informed of condition?: Yes Discharge Level of Care: Other Communicable Disease: No Discharge Prognosis: Improving Lines: None Urinary Catheter: No Medications and DC Order Prescriptions: New oxycodone-acetaminophen [Percocet] 5-325 mg Tablet 1 tab PO Q4H PRN (Reason: pain) Qty: 15 RF: 0 potassium chloride [Klor-Con M20] 20 mEq Tablet,Er Particles/Crystals 20 meq PO TID Qty: 6 RF: 0 Continued atenolol 50 mg tablet 50 mg PO DAILY RF: 0 aspirin 81 mg tablet,delayed release (DR/EC) 81 mg PO DAILY RF: 0 atorvastatin 10 mg tablet 10 mg PO DAILY RF: 0 enalapril-hydrochlorothiazide 10-25 mg tablet 1 tab PO DAILY RF: 0 ferrous gluconate 324 mg (37.5 mg iron) tablet 324 mg PO DAILY RF: 0 metformin 1,000 mg tablet 1,000 mg PO BID RF: 0 ranitidine HCl 150 mg capsule 150 mg PO BID RF: 0 Discontinued metronidazole 500 mg Tablet 500 mg PO TID RF: 0 Fleet Enema 19-7 gram/118 mL Enema 197 ml WA DAILY RF: 0 magnesium citrate Solution 1 ml PO UD RF: 0 neomycin 500 mg Tablet 500 mg PO Q8H RF: 0 bisacodyl 5 mg Tablet 10 mg PO DAILY RF: 0 Discharge Orders: Discharge Order (Routine); Ordered 03/29/19 Ordered By: Iain Kim/Other Patient Handouts: Surgery Prevent DVT After Admission Data Admit Date/Time: 03/24/19 12:52 Attending Provider: Darion Valdez Admit Provider: Darion Valdez Primary Care Provider: Raul MACKENZIE Other Interventions: Discharge Summary Assessment (RN) Last Done: 03/29/19 09:17
== END 2019-03-29 13:02 | DRG 330 ==
LOC: ASU 08:07 → 3W 12:52